=== PATIENT | female | born 2005 | race Caucasian/White ===

== ENCOUNTER 2025-04-05 19:36 | Emergency (ER) | payer OTHER, SELFPAY ==
--- OUTSIDE RECORDS SUMMARY | 2025-04-05 19:46 | XMS_ITS | Patient Health Record ---
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 If intended option is not shown, discontinue and re-order from Quick Search* Active Pulmicort Flexhaler 180 MCG/ACT 1 puff Inhalation Twice a day for 60 days Active Albuterol Sulfate HFA 108 (90 Base) MCG/ACT INHALE 2 PUFFS EVERY 4 HOURS IF NEEDED FOR WHEEZING OR SHORTNESS OF BREATH. Inhalation every 4 - 6 hours as needed for 30 days Active Albuterol Sulfate (2.5 MG/3ML) 0.083% 3 mL as needed Inhalation every 6 hrs as needed for 30 days Active Social History Tobacco Use: Social History Observation Description Date Details (start date - stop date) Never Smoker NA - NA Tobacco Control (Standard) Question Answer Notes Tobacco use: Nonsmoker Problems Problem Type SNOMED Code ICD Code Onset Dates Problem Status W/U Status Risk Notes Problem Seasonal allergy (082280294) Seasonal allergies (J30.2) Active confirmed Problem Asthma (383483053) Asthma (J45.909) Active confirmed Problem 488126871 Mild intermitten t asthma with exacerbation (J45.21) Active confirmed Vital Signs Temperature 96.8 degrees Fahrenheit 12/30/2024 Respiratory Rate 18 /min 12/30/2024 Oximetry 95 12/30/2024 Blood pressure diastolic 72 mm Hg 12/30/2024 Height 69 in 12/30/2024 Blood pressure systolic 118 mm Hg 12/30/2024 Weight 171.2 lbs 12/30/2024 BMI 25.28 kg/m2 12/30/2024 Encounters Encounter Location Date Provider Diagnosis [id number] [facility] [address] [place] [address] 12/30/2024 Radha Dalton Mild intermittent asthma with exacerbation J45.21 ; Seasonal allergies J30.2 ; Wheeze R06.2 ; Acute URI J06.9 and Medication refill Z76.0 [id number] [facility] [address] [place] [address] 12/30/2024 Radha Dalton Mild intermittent asthma with exacerbation J45.21 Assessments Encounter Date Diagnosis (ICD Code) Assessment Notes Treatment Notes Treatment Clinical Notes Section Notes 12/30/2024 Seasonal allergies (ICD-10 - J30.2) Seasonal Allergies: Care Instructions material was published Follow up in the clinic or with PCP as needed 12/30/2024 Mild intermittent asthma with exacerbation (ICD-10 - J45.21) Learning About Asthma material was published, Asthma in Adults: Care Instructions material was published Follow up with PCP for further evaluation. For any urgent/emergent signs and symptoms please seek immediate care at nearest UC/ED for elevated level of care. Asthma is a chronic condition that can make it hard to breathe. It causes the airways that lead to the lungs to swell and get inflamed. Some people have a hard time breathing only at certain times. This may be during allergy season, when they get a cold, or when they exercise. Others have breathing problems a lot of the time. When asthma symptoms suddenly get worse (or flare up), the airways swell and become narrower. This makes it hard to breathe, and you may wheeze or cough. These flare-ups are also called asthma attacks or exacerbations (say rn-YTN-ds-BAY-sh brenda ). Even though asthma is a chronic condition, treatment can help you feel and breathe better and help keep your lungs healthy. When you have asthma, you may: Wheeze, making a loud or soft whistling noise when you breathe in and out.Cough a lot. This is the only symptom for some people.Feel tightness in your chest.Feel short of breath. You may have rapid, shallow breathing or trouble breathing.Have trouble sleeping because you're coughing or having a hard time breathing.Get tired quickly during exercise.Symptoms may start soon after you're around things (triggers) that cause your asthma attacks. This is an early phase response. Or they may start several hours after exposure (late phase response). A late phase response can make it harder to figure out what triggers your symptoms. Symptoms can be mild or severe. You may have symptoms daily or just now and then. Or you may have something in between. Some people have symptoms that get worse at night, such as a cough and shortness of breath. Asthma is treated with medicine to help you breathe easier, along with self-care. Most medicines for asthma are inhaled. These types of medicines go straight to your airways, where the problem is. The main medicines used to treat asthma include: Controller medicines. These medicines prevent asthma attacks, stop problems before they happen, and reduce inflammation in your lungs. These things help you control your asthma.Quick-reli ef medicines. These medicines are used when you can't prevent symptoms and need to treat them fast.Oral or injected corticosteroids. These medicines may be used to treat asthma attacks.Treatment also includes things you can do to control your symptoms, like avoiding your triggers and following your asthma action plan. There's no certain way to prevent asthma. But you can reduce your risk of asthma attacks by avoiding things that cause them. And using your asthma controller medicine helps prevent them. The goal is to reduce how many attacks you have, how long they last, and how bad they get. Start by avoiding your asthma triggers. For example: Don't smoke or vape. And avoid being around others when they smoke or vape.Avoid things you're allergic to, like pets with fur, dust, cockroaches, or pollen.If exercise is a trigger, ask your doctor about using a quick-relief medicine before you exercise.Stay inside when air pollution, pollen, or dust levels are high.Try not to exercise outside when it's cold and dry.Also be sure to: Avoid infections such as COVID-19, colds, and the flu. Wash your hands often. Talk to your doctor about getting pneumococcal and respiratory syncytial virus (RSV) vaccines. Get a flu vaccine every fall. Stay up to date on your COVID-19 vaccines.Avoid taking aspirin, ibuprofen, or similar medicines if they make symptoms worse.Follow-up care is a sarabia part of your treatment and safety. Be sure to make and go to all appointments, and call your doctor if you are having problems. It's also a good idea to know your test results and keep a list of the medicines you take. 12/30/2024 Mild intermittent asthma with exacerbation (ICD-10 - J45.21) Learning About Asthma material was published 12/30/2024 Wheeze (ICD-10 - R06.2) Wheezing or Bronchoconstricti on: Care Instructions material was published, Using a Metered-Dose Inhaler Without a Spacer: Care Instructions material was published Patient instructed to avoid the use of NSAIDS (such as: Motrin, Ibuprofen, Advil, naproxen, Aleve, Celebrex, Diclofenac) while taking oral steroids. Oral steroids can make you feel jittery and/or irritable. Recommended to take in mornings with food. Follow up with PCP for further evaluation. For any urgent/emergent signs and symptoms, please seek immediate care at nearest UC/ED for elevated level of care. 12/30/2024 Acute URI (ICD-10 - J06.9) Viral Respiratory Infection: Care Instructions material was published Follow up in the clinic or with PCP as needed. May consider taking OTC cough/cold treatment as needed per traffic engineer's instructions for symptom management. 12/30/2024 Medication refill (ICD-10 - Z76.0) Medication Refill: Care Instructions material was published Medication was refilled at this visit. RX was printed and given to patient. Follow up with PCP for further evaluation. 12/30/2024 Other Budesonide Oral Inhalation material was published, Albuterol Oral Inhalation material was published, Loratadine material was published Visit summary given to and discussed with patient and/or parent who verbalizes understanding and agreement with plan of care. Thank you for your visit. Please look for the satisfaction survey that you will receive via email. We look forward to receiving your feedback regarding your experience at [facility]. 12/30/2024 Other Budesonide and Formoterol Oral Inhalation material was published Plan Of Treatment No Information Insurance Providers Payer Name Payer Address Payer Phone Subscriber Number Group Number Insured Name Patient Relationship to Insured Coverage Start Date Coverage End Date [address] [place] [phone] [id number] Kiara Murry Self - patient is the insured Medical (General) History Medical History History ICD Code Seasonal allergies J30.2 Asthma J45.909 Surgical History Surgery Date(Month/Year) Dental
--- OUTSIDE RECORDS SUMMARY | 2025-04-05 19:46 | XMS_ITS | Clinical Summary ---
Author Organization [facility] Address [address] [place] [address] Phone Care Team Providers Care Marine Consultant Name Role Phone CintiaAnn park Roxann GAITAN-SIENNA Primary Care Prov ider Medications albuterol (Ventolin HFA) 90 mcg/actuation inhalerIndication s:Mild intermittent asthma, unspecified whether complicated (HHS-HCC) Inhale 2 puffs every 4 hours if needed for wheezing or shortness of breath. 18 g 1 4 07/27/20 25 Active budesonide (Pulmicort) 180 mcg/actuation inhalerIndication s:Mild intermittent asthma, unspecified whether complicated (HHS-HCC) Inhale 1 puff 2 times a day. Rinse mouth with water after use. 1 each 1 4 Active Social History Tobacco Use Types Packs/Day Years Used Date Smoking Tobacco: Never Assessed Comments Unknown Sex and Gender Information Value Date Recorded Sex Assigned at Not on file Legal Sex Female 5:16 PM EST Gender Identity Not on file Sexual Orientation Not on file Last Filed Vital Signs Vital Sign Reading Time Taken Comments Blood Pressure 130/61 01/26/2022 11:47 AM EDT Pulse 85 01/26/2022 11:47 AM EDT Temperature 36.6 C (97.8 F) 01/26/2022 11:47 AM EDT Respiratory Rate 21 01/26/2022 11:47 AM EDT Oxygen Saturation 98% 01/26/2022 11:47 AM EDT Inhaled Oxygen Concentration - - Weight 73.3 kg (161 lb 8.9 oz) 01/26/2022 11:47 AM EDT Height 171 cm (5' 7.32 ) 01/26/2022 11:47 AM EDT Body Mass Index 25.06 01/26/2022 11:47 AM EDT Plan of Treatment Health Maintenance Due Date Last Done Comments HIV Screening 2004 Lipid Panel 2004 Yearly Adult Physical 2004 MMR Vaccines (1 of 1 - Stand kiah series) 2005 Hearing Screening (#1) 2008 DTaP/Tdap/Td Vaccines (1 - Tdap) 2011 Varicella Vaccines (1 of 2 - 13+ 2-dose series) 2017 HPV Vaccines (1 - 3-dose series) 2019 Meningococcal B Vaccine (1 o f 2 - Standard) 2020 Hepatitis C Screening 2022 Hepatitis B Vaccines (1 of 3 - 19+ 3-dose series) 2023 Pneumococcal Vaccine: Pediat rics and At-Risk Adult Patients (1 of 2 - PCV) 2023 COVID-19 Vaccine (1 - 2023-2 5 season) 2024 Cervical Cancer Screening 2025 HPV/Cotest 2025 Pap Smear 2025 Influenza Vaccine (Season Ended) 2025 Zoster Vaccines (1 of 2) 2054 HIB Vaccines Aged Out No longer eligi ble based on patient's age to complete this topic Hepatitis A Vaccines Aged Out No long er eligible based on patient's age to complete this topic IPV Vaccines Aged Out No longer eligi ble based on patient's age to complete this topic Meningococcal Vaccine Aged Out No arnoldo sachi eligible based on patient's age to complete this topic Rotavirus Vaccines Aged Out No longer eligible based on patient's age to complete this topic Care Teams Marine Consultant Relationship Specialty Start Date End Date Ann Hanley APRN-SIENNA [address] [facility] [place] [address] PCP - General 08/01/17
[2025-04-05 19:50] VITALS: BP 142/90; PULSE 79; TEMP 36.8; O2SAT 100; BMI 23.6
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
[2025-04-05] MEDS: ACETAMINOPHEN 500 MG TABLET 1000 MG PO (20:09)
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
== END 2025-04-05 21:42 | disposition home or self-care (01) ==
PROVIDERS: Emergency Provider Internal Medicine; Family Provider Hospitalist
DX: S16.1XXA Strain of muscle, fascia and tendon at neck level, initial encounter (principal); S39.012A Strain of muscle, fascia and tendon of lower back, initial encounter; V49.49XA Driver injured in collision with other motor vehicles in traffic accident, initial encounter
CPT/HCPCS: 70450; 72125; 72131; 99284